=== PATIENT | male | born 1970 | race American Indian/Alaskan Native ===

== ENCOUNTER 2016-09-24 18:34 | Emergency (ER) | payer SELFPAY ==
[2016-09-24 20:28] LABS: Basophils % (Auto) 0.6 % (0.0-1.8); Eosinophils % (Auto) 3.5 % (0.0-4.3); Hematocrit 44.5 % (35.5-45.6); Hemoglobin 14.6 gm/dl (11.8-15.2); Mean Corpuscular HGB Conc 33 % (32-34); Mean Corpuscular Hemoglobin 31 pg (28-32); Mean Corpuscular Volume 94 fl (84-94); Platelet Count 306 K/mm3 (140-440); Red Blood Count 4.76 M/mm3 (3.65-5.03); Red Cell Distribution Width 13.6 % (13.2-15.2); White Blood Count 8.6 K/mm3 (4.5-11.0)
[2016-09-24 20:33] LABS: Bilirubin,Urine NEG (Negative); Blood,Urine NEG (Negative); Ketones,Urine NEG (Negative); Leukocyte Esterase,Urine NEG (Negative); Mucus,Urine FEW /HPF; Nitrite,Urine NEG (Negative); Protein,Urine <15 mg/dL mg/dL (Negative); Urobilinogen,Urine < 2.0 mg/dL (<2.0); WBC,Urine < 1.0 /HPF (0.0-6.0)
[2016-09-24 20:38] LABS: Alanine Aminotransferase 12 units/L (7-56); Albumin 4.1 g/dL (3.9-5); Albumin/Globulin Ratio 1.2 %; Alkaline Phosphatase 54 units/L (35-129); Anion Gap 17 mmol/L; BUN/Creatinine Ratio 11.11; Bilirubin,Total 0.4 mg/dL (0.1-1.2); Blood Urea Nitrogen 10 mg/dL (9-20); Calcium 9.1 mg/dL (8.4-10.2); Carbon Dioxide 25 mmol/L (22-30); Chloride 97.8 mmol/L (98-107); Glucose 112 mg/dL (75-100); Lipase 23 units/L (13-60); Potassium 3.7 mmol/L (3.6-5.0); Sodium 136 mmol/L (137-145); Total Protein 7.4 g/dL (6.3-8.2)
[2016-09-25] MEDS ORDERED: NACL 0.9% 1000 ML 1,000 ML IV ONE (01:58)
--- NOTE | 2016-09-25 02:00 | Emergency Department Report ---
ED Male HPI - General Chief complaint: Abdominal Pain Stated complaint: RT SIDE PAIN Time Seen by Provider: 09/25/16 01:41 Source: patient Mode of arrival: Ambulatory Limitations: No Limitations - History of Present Illness Initial comments: This is a pleasant 45-year-old gentleman who describes right-sided abdominal pain that is worsened throughout the course of the day. He states he feels like he is bloated on the right side of his abdomen. He states it hurts to push down and hurts even more tender release from warnings pushing down. He denies nausea or vomiting denies anorexia denies diarrhea. Denies fever. Does have history of cholecystectomy 7 years ago. -: Gradual Radiation: none Severity: moderate Severity scale (0 -10): 7 Quality: sharp Consistency: constant Improves with: none Worsens with: none denies: rash, urinary retention, blood in urine, dysuria, fever - Related Data Previous Rx's Medication Instructions Recorded Last Taken Type Omeprazole 40 mg PO DAILY #30 capsule. 09/25/16 Unknown Rx traMADol [Ultram 50 MG tab] 50 mg PO Q6HR PRN #20 tablet 09/25/16 Unknown Rx Allergies Allergy/AdvReac Type Severity Reaction Status Date / Time acetaminophen Allergy Unknown Verified 11/15/15 10:06 ED Review of Systems ROS: Stated complaint: RT SIDE PAIN Other details as noted in HPI Comment: All other systems reviewed and negative Constitutional: denies: chills, fever Eyes: denies: eye pain, eye discharge, vision change ENT: denies: ear pain, throat pain Respiratory: denies: cough, shortness of breath, wheezing Cardiovascular: denies: chest pain, palpitations Endocrine: no symptoms reported Gastrointestinal: abdominal pain. denies: nausea, diarrhea Genitourinary: denies: urgency, dysuria Musculoskeletal: denies: back pain, joint swelling, arthralgia Skin: denies: rash, lesions Neurological: denies: headache, weakness, paresthesias Psychiatric: denies: anxiety, depression Hematological/Lymphatic: denies: easy bleeding, easy bruising ED Past Medical Hx - Past Medical History Previous Medical History?: Yes Hx Liver Disease: Yes (Liver levels have been high in the past) Additional medical history: herniated disc. siatica - Surgical History Additional Surgical History: left knee surgery x 2, Gall bladder removed 2008 - Social History Smoking Status: Unknown if ever smoked - Medications Home Medications: Home Medications Medication Instructions Recorded Confirmed Last Taken Type Omeprazole 40 mg PO DAILY #30 capsule. 09/25/16 Unknown Rx traMADol [Ultram 50 MG tab] 50 mg PO Q6HR PRN #20 tablet 09/25/16 Unknown Rx ED Physical Exam - General Limitations: No Limitations General appearance: alert, in no apparent distress - Head Head exam: Present: atraumatic, normocephalic - Eye Eye exam: Present: normal appearance, EOMI. Absent: scleral icterus - ENT ENT exam: Present: normal exam, mucous membranes moist - Neck Neck exam: Present: normal inspection. Absent: tenderness, lymphadenopathy - Respiratory Respiratory exam: Present: normal lung sounds bilaterally. Absent: respiratory distress, wheezes - Cardiovascular Cardiovascular Exam: Present: regular rate, normal rhythm. Absent: systolic murmur, diastolic murmur, rubs, gallop - GI/Abdominal GI/Abdominal exam: Present: soft, tenderness (right lateral abdomen along the umbilical line. Moderate amount is noted. Minimal guarding appreciated. Negative Mendez sign.), normal bowel sounds. Absent: organomegaly, mass, pulsatile mass - Rectal Rectal exam: Present: deferred - Extremities Exam Extremities exam: Present: normal inspection. Absent: tenderness, calf tenderness - Back Exam Back exam: Present: normal inspection. Absent: tenderness, CVA tenderness (R), CVA tenderness (L) - Neurological Exam Neurological exam: Present: alert, oriented X3 - Psychiatric Psychiatric exam: Present: normal affect, normal mood - Skin Skin exam: Present: warm, dry, intact, normal color. Absent: rash ED Course Vital Signs 09/24/16 09/25/16 09/25/16 19:32 01:32 02:00 Temperature 98.4 F 97.8 F Pulse Rate 69 68 82 Respiratory 18 18 18 Rate Blood Pressure 122/82 Blood Pressure 131/89 120/80 [Left] O2 Sat by Pulse 99 98 99 Oximetry 09/25/16 09/25/16 09/25/16 02:30 03:00 03:02 Temperature Pulse Rate 91 H 82 Respiratory 18 16 18 Rate Blood Pressure Blood Pressure 117/81 109/62 [Left] O2 Sat by Pulse 100 99 98 Oximetry - Reevaluation(s) Reevaluation #1: 09/25/16 02:03 Labs are noted and are essentially unremarkable. Urinalysis is unremarkable as well bedside ultrasound was done demonstrating normal appearing liver as well as right kidney. Patient is able to put the probe right over the area of maximal tenderness. This correlates with bowel. Not able to specifically identify the appendix with my bedside ultrasound. We'll obtain CT due to concern for possible appendicitis. Anatomically it would be running slightly higher than I would anticipate. But actually K do not have an alternative diagnosis for this tenderness seems reasonable. Patient does have moderate amount of discomfort on his abdomen. Would not term it a surgical abdomen. But He clearly is uncomfortable. Reevaluation #2: 09/25/16 04:31 CT examination is read by the radiologist demonstrates no acute appendicitis. They're only abnormality is noted to be some mild gastritis as well as duodenitis. This does correlate with my impression as well. We'll have the patient be on a bland diet and trial of antacids. It is possible it could be infectious etiology in which should still be very careful in the diet at this point. Patient's understanding that he needs to return if he has persistent pain or worsening. He agrees to do this. ED Medical Decision Making - Lab Data Result diagrams: 09/24/16 20:06 09/24/16 20:06 Critical care attestation.: If time is entered above; I have spent that time in minutes in the direct care of this critically ill patient, excluding procedure time. ED Disposition Clinical Impression: Gastritis and duodenitis Disposition: DISCHARGED TO HOME OR SELFCARE Is pt being admited?: No Does the pt Need Aspirin: No Condition: Stable Instructions: Gastritis (ED), Diet for Ulcers and Gastritis (ED) Prescriptions: Omeprazole 40 mg PO DAILY #30 capsule. traMADol [Ultram 50 MG tab] 50 mg PO Q6HR PRN #20 tablet PRN Reason: Pain Forms: Work/School Release Form(ED) Time of Disposition: 04:29
--- NOTE | 2016-09-25 04:19 | Cat Scan Report ---
FINAL REPORT PROCEDURE: CT ABDOMEN PELVIS W CON TECHNIQUE: Computerized axial tomography of the abdomen and pelvis was performed after the IV injection of iodinated nonionic contrast. HISTORY: R sided abd pains r/o appy COMPARISON: No prior studies are available for comparison. FINDINGS: Visualized lower thorax: No significant abnormality. Liver: Normal size and attenuation. Spleen: Normal size and attenuation. Gallbladder and biliary system: There has been a cholecystectomy.. Pancreas: Normal. Adrenals: Normal. Kidneys: Normal. GI tract: There is mucosal thickening of the stomach antrum and proximal duodenum indicating gastritis and duodenitis. There is no obstruction, mass or perforation. The colon and appendix are normal.. Lymph nodes and mesentery: Normal. Vasculature: Normal. Bladder: Normal. Reproductive organs: Normal. Peritoneum: There is no ascites, free air, abscess or adenopathy.. Musculoskeletal structures: No significant abnormality. Other: None. IMPRESSION: There has been a cholecystectomy. There is no biliary ductal dilatation. There is mucosal thickening of the stomach antrum and proximal duodenum indicating gastritis and duodenitis. There is no obstruction, mass or perforation. The colon and appendix are normal.. There is no ascites, free air, abscess or adenopathy..
[2016-09-25] MEDS ORDERED: DILAUDID IV ONE (04:26)
[2016-09-25 05:31] VITALS: BP 113/74
== END 2016-09-25 05:10 | disposition home or self-care (01) ==
LOC: ED 18:34
DX: K29.70 Gastritis, unspecified, without bleeding (principal); K29.80 Duodenitis without bleeding; Z88.8 Allergy status to other drugs, medicaments and biological substances
CPT/HCPCS: 36415; 74177; 80053; 81001; 83690; 85025; 96361; 96374; 99284; J1170; J7030; Q9967

== ENCOUNTER 2016-10-01 17:28 | Emergency (ER) | payer OTHER ==
[2016-10-01 17:43] VITALS: BP 110/75
[2016-10-01] MEDS ORDERED: NACL 0.9% 1000 ML 1,000 ML IV ONE (17:43)
[2016-10-01 18:54] LABS: Alanine Aminotransferase 11 units/L (7-56); Albumin 4.5 g/dL (3.9-5); Albumin/Globulin Ratio 1.4 %; Alkaline Phosphatase 57 units/L (35-129); Anion Gap 18 mmol/L; BUN/Creatinine Ratio 11.11; Bilirubin,Total 0.4 mg/dL (0.1-1.2); Blood Urea Nitrogen 10 mg/dL (9-20); Calcium 9.3 mg/dL (8.4-10.2); Carbon Dioxide 27 mmol/L (22-30); Chloride 97.9 mmol/L (98-107); Glucose 96 mg/dL (75-100); Lipase 18 units/L (13-60); Potassium 3.9 mmol/L (3.6-5.0); Sodium 139 mmol/L (137-145); Total Protein 7.8 g/dL (6.3-8.2)
[2016-10-01 18:58] LABS: Basophils % (Auto) 0.6 % (0.0-1.8); Eosinophils % (Auto) 0.7 % (0.0-4.3); Hematocrit 44.7 % (35.5-45.6); Hemoglobin 14.7 gm/dl (11.8-15.2); Mean Corpuscular HGB Conc 33 % (32-34); Mean Corpuscular Hemoglobin 30 pg (28-32); Mean Corpuscular Volume 92 fl (84-94); Platelet Count 363 K/mm3 (140-440); Red Blood Count 4.85 M/mm3 (3.65-5.03); Red Cell Distribution Width 13.6 % (13.2-15.2); White Blood Count 9.7 K/mm3 (4.5-11.0)
[2016-10-01 19:08] LABS: INR 0.93 (0.87-1.13)
[2016-10-01 19:09] LABS: Partial Thromboplastin Time 31.4 Sec. (24.2-36.6)
[2016-10-02] MEDS ORDERED: DILAUDID IV ONE (01:31)
[2016-10-02] MEDS ORDERED: PROTONIX IV ONE (01:31)
[2016-10-02] MEDS ORDERED: NACL 0.9% 1000 ML 1,000 ML IV ONE (01:31)
--- NOTE | 2016-10-02 01:32 | Emergency Department Report ---
ED GI Bleed HPI - General Chief complaint: GI Bleed Stated complaint: BLOOD IN STOOL Time Seen by Provider: 10/02/16 01:15 Source: patient Mode of arrival: Ambulatory Limitations: No Limitations - Related Data Previous Rx's Medication Instructions Recorded Last Taken Type Omeprazole 40 mg PO DAILY #30 capsule. 09/25/16 Unknown Rx traMADol [Ultram 50 MG tab] 50 mg PO Q6HR PRN #20 tablet 09/25/16 Unknown Rx traMADol [Ultram 50 MG tab] 50 mg PO Q6HR PRN #20 tablet 10/02/16 Unknown Rx Allergies Allergy/AdvReac Type Severity Reaction Status Date / Time acetaminophen Allergy Unknown Verified 11/15/15 10:06 ED Review of Systems ROS: Stated complaint: BLOOD IN STOOL Other details as noted in HPI ED Past Medical Hx - Past Medical History Previous Medical History?: Yes Hx Liver Disease: Yes (Liver levels have been high in the past) Additional medical history: herniated disc. siatica - Surgical History Additional Surgical History: left knee surgery x 2, Gall bladder removed 2008 - Social History Smoking Status: Light Tobacco Smoker Substance Use Type: Alcohol, Prescribed - Medications Home Medications: Home Medications Medication Instructions Recorded Confirmed Last Taken Type Omeprazole 40 mg PO DAILY #30 capsule. 09/25/16 Unknown Rx traMADol [Ultram 50 MG tab] 50 mg PO Q6HR PRN #20 tablet 09/25/16 Unknown Rx traMADol [Ultram 50 MG tab] 50 mg PO Q6HR PRN #20 tablet 10/02/16 Unknown Rx ED Physical Exam - General Limitations: No Limitations ED Course Vital Signs 10/01/16 17:39 Temperature 99.9 F H Pulse Rate 104 H Respiratory 20 Rate Blood Pressure 110/75 O2 Sat by Pulse 98 Oximetry - Reevaluation(s) Reevaluation #1: 10/02/16 01:16 EKG at 1744 with sinus tachycardia at 102 bpm with normal CA and QRS. Normal axis is noted. There are nonspecific ST T-wave changes noted no acute noted. Reevaluation #2: 10/02/16 02:30 Patient's presentation seems consistent mostly with gastritis with a likely bleeding from this. He does not appear to have ongoing bleeding. His pain has improved with medication here tonight. He is also improved with IV fluids. I am a little bit concerned given his temperature 99.9. I'm not sure etiology of that. That describing anything that necessarily sounds infectious to me at this point. I am strongly suspicious that the etiology is still hemorrhagic gastritis. Likely has some chronic disease from long-term irritation and inflammation. I did strongly encourage him to get on the omeprazole. I did give him a good [employer] Coupon good for $4 prescription. Patient is agreeable with the plan as described above. In regards to his abdominal wall., I suspect he had some type of irritation or strain from lifting heavy loads he doesn't work. 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 I suspect this landed to some type of abdominal wall strain. I have encouraged him to take it easy for several days. I do not appreciate any hernias at this time. I do not have suspicion for surgical etiology at this time. ED Medical Decision Making - Lab Data Result diagrams: 10/01/16 18:03 10/01/16 18:03 Critical care attestation.: If time is entered above; I have spent that time in minutes in the direct care of this critically ill patient, excluding procedure time. ED Disposition Clinical Impression: Gastritis and duodenitis GI bleed Qualifiers: GI bleed type/associated pathology: gastroduodenitis Qualified Code(s): K29.91 - Gastroduodenitis, unspecified, with bleeding Strain of abdominal wall Qualifiers: Encounter type: initial encounter Qualified Code(s): S39.011A - Strain of muscle, fascia and tendon of abdomen, initial encounter Disposition: DISCHARGED TO HOME OR SELFCARE Is pt being admited?: No Does the pt Need Aspirin: No Condition: Stable Instructions: Muscle Strain (ED) Additional Instructions: Return if you have significant amount of bleeding that occurs. Omeprazole is available [id number] and 20 mg doses. Take 2 tablets every day for at least the next 30 days. After this it would be good to be on 20 mg tablet for at least another month. Continue to follow bland diet as recommended before regarding your gastritis. Caution with her activities regarding your abdominal wall muscles. Prescriptions: traMADol [Ultram 50 MG tab] 50 mg PO Q6HR PRN #20 tablet PRN Reason: Pain Referrals: PRIMARY CARE,MD [Primary Care Provider] - 3-5 Days Forms: Accompanied Note, Work/School Release Form(ED) Time of Disposition: 02:20
== END 2016-10-02 03:15 | disposition home or self-care (01) ==
LOC: ED 17:28
DX: S39.011A Strain of muscle, fascia and tendon of abdomen, initial encounter (principal); K29.91 Gastroduodenitis, unspecified, with bleeding; K76.9 Liver disease, unspecified; F17.200 Nicotine dependence, unspecified, uncomplicated; Z88.8 Allergy status to other drugs, medicaments and biological substances
CPT/HCPCS: 36415; 80053; 83690; 85025; 85610; 85730; 86850; 86900; 86901; 93005; 93010; 96361; 96374; 96375; 99284; C9113; J1170; J7030